=== PATIENT | female | born 1975 | race Caucasian/White ===

== ENCOUNTER → 2018-04-23 | Emergency (ER) | payer OTHER ==
[~2018-04-23] VITALS: Ht 167.6 cm; Wt 63.5 kg
[~2018-04-23] MED LIST: HUMULIN 70/30 PE3 ML SQ; SYNTHROID100 MCG PO
== END | disposition home or self-care (01) ==
LOC: ER 12:43
DX: E16.1 Other hypoglycemia (principal)